=== PATIENT | male | born 1965 | race Caucasian/White ===

== ENCOUNTER 2020-11-28 11:03 | Emergency (ER) | payer BC ==
[~2020-11-28] VITALS: Ht 175.3 cm; Wt 102.3 kg
== END 2020-11-28 11:57 | disposition home or self-care (01) ==
LOC: ER 11:04
DX: U07.1 COVID-19 (principal); R05 Cough; I48.91 Unspecified atrial fibrillation; Z72.89 Other problems related to lifestyle
CPT/HCPCS: 36415; 87635; 99283